=== PATIENT | female | born 1995 | race Caucasian/White ===

== ENCOUNTER 2020-07-27 14:59 | Inpatient (IN) ==
[2020-07-27] MEDS ORDERED: OXYTOCIN 30 UNITS/500 ML BAG IV PRN ×2 (16:16)
--- NOTE | 2020-07-27 16:16 | Labor Progress Brief Note ---
Date of Service July 27, 2020 Subjective Patient presents for BP monitoring / IOL due to mild preeclampsia. She was contacted by phone when her 24 hour urine protein came in a 760mg a few hours ago. She had one hypertensive value in the office two days ago, and another here upon admission, making the diagnosis of mild preeclampsia and indicating for delivery at 38w2d. She presently has good FM, no VB or LOF, and no contractions. She has blurry vision which is not new / not severe, and mild edema which is stable. There is no headache, no recurrence of the nausea she had a few days ago, and no RUQ pain. She has a negative COVID test from two days ago. Assessment & Plan (1) Mild pre-eclampsia affecting first : IOL for mild preeclampsia at term. Patient feeling well and BP fluctuating from normal to mild-HTN range. Rojo balloon placed just now after verbally consenting the patient. Will monitor for at least an hour while labs / IV / etc get placed, then can start pitocin as well if status remains reas suring. Admission and Anticipated Discharge Date Admission Date: July 27, 2020 Physical Exam Constitutional: WD/WN, vitals as above Eyes: PERRL, conjunctivae normal, anicteric sclerae ENMT: external ear and nose normal, oropharynx normal Neck: supple Respiratory: normal respiratory effort and able to speak in complete sentences; no respiratory distress Cardiovascular: Rate/Rhythm: regular rate and regular rhythm Extremities: + pedal edema Gastrointestinal (Abdomen): Gravid / AGA, nontender Musculoskeletal: no cyanosis or clubbing, extremities motor strength 5/5 Skin: no rashes, warm and dry Neurologic: patellar DTR's 2+ bilat, sensation intact Psychiatric: A+Ox3, euthymic affect Genitourinary: Speculum/Bimanual Exam: no vaginal lesions, no vaginal bleeding and uterus nontender OB Exam Abdomen: + vertex and + estimated weight (7) Manual OB Exam: + cervical dilation (1), + cervical effacement 50%, + station -2 and + amniotic fluid (No leakage.) OB Exam Monitor Tracing: + external FHT monitor used, + external uterine monitor used and + category I Lymphatic: no cervical or axillary lymphadenopathy Results & Data ([facility]) Vital Signs (Past 12 Hours) Vital Signs Temp Pulse Resp BP 07/27/20 15:55 103 H 131/69 07/27/20 15:40 113 H 146/80 H 07/27/20 15:27 117 H 137/75 07/27/20 15:18 98.6 F 117 H 20 137/75 07/27/20 15:09 120 H 140/82 07/27/20 15:07 98.6 F 20 Coding Level of Care Code None Diagnoses Mild pre-eclampsia affecting first O14.00
--- NOTE | 2020-07-27 16:16 | Procedure Note ---
Procedure Note Date of Service July 27, 2020 Note Patient was placed in L&D bed and a reactive NST was obtained. The beasley bulb placement process was explained to the patient and all questions answered to her satisfaction. She was positioned in lithotomy, and a latex beasley was prepared with a lubricated stylet and a syringe of 30cc sterile water. A gloved hand was used to identify and examine the cervix which was found to be 1/50/-2. The catheter was advanced to a point just outside the internal os, then the beasley was slid forward off of the stylet and into the uterine cavity outside the amniotic sac. The stylet was removed, and the beasley balloon was inflated to 30cc. The beasley was gently seated downward against the internal cervical os and fixed to the patient's thigh. The heart tones remained cat 1 and will be monitored for 1 hour prior to the patient being allowed to go home for rest. She was counseled on reasons to call or return to L&D, and the plan for continued induction upon her return in A.M. Coding
[2020-07-27 16:35] LABS: Hematocrit (blood only) 38.4 % (37-47); Hemoglobin 12.9 g/dL (12.0-16.0); Mean Corpuscular Hemoglobin 30.3 pg (25-34); Mean Corpuscular Hgb Conc 33.6 g/dL (32-36); Mean Corpuscular Volume 90.1 fL (80-100); Mean Platelet Volume 9.7 fL (7.4-10.4); Platelet Count 352 K/uL (130-400); RDW Coefficient of Variation 13.4 % (11.5-14.5); Red Blood Count 4.26 M/uL (4.2-5.4); White Blood Count 16.26 K/uL (4.8-10.8)
[2020-07-27 16:56] LABS: Alanine Aminotransferase 14 U/L (12-78); Albumin Level 2.6 gm/dl (3.4-5.0); Aspartate Aminotransferase 13 U/L (15-37); BUN Creatinine Ratio 13.8 (10-20); Blood Urea Nitrogen 7 mg/dl (7-18); Calcium 8.7 mg/dl (8.5-10.1); Carbon Dioxide 21 mmol/L (21-32); Chloride 110 mmol/L (98-107); Est GFR (African American) > 150.0; Est GFR (Non-African American) 133.7; Glucose 88 mg/dl (70-99); Potassium 3.9 mmol/L (3.5-5.1); Sodium 137 mmol/L (136-145)
[2020-07-27 16:59] LABS: Albumin Globulin Ratio 0.7 (0.9-2); Alkaline Phosphatase 138 U/L (45-117); Bilirubin,Total 0.4 mg/dl (0.2-1); Globulin 3.8 gm/dl (2.5-4.0); Total Protein 6.4 gm/dl (6.4-8.2)
[2020-07-27] MEDS: LACTATED RINGER'S 1,000 ML IV PRN (18:13)
[2020-07-28] MEDS: LACTATED RINGER'S 1,000 ML IV PRN ×3 (01:37→11:08)
[2020-07-28] MEDS ORDERED: ePHEDrine sulfate 50 MG/ML AMP ONE (06:47)
[2020-07-28] MEDS ORDERED: SODIUM CHLORIDE 0.9% INJ 10 ML VIAL ONE (06:47)
[2020-07-28] MEDS ORDERED: fentaNYL citrate 100 MCG/2 ML VIAL ONE (06:48)
[2020-07-28] MEDS ORDERED: fentaNYL 2MCG/ML ROPIVACAINE 1.25MG/ML 100 ML BAG EPI ONE (06:48)
[2020-07-28] MEDS ORDERED: BUPIVACAINE 0.25% 30 ML VIAL ONE (06:48)
--- NOTE | 2020-07-28 07:00 | Labor Progress Brief Note ---
Date of Service July 28, 2020 Van Rojo came out last evening. Patient has been on pitocin through the night, however only now is she becoming uncomfortable enough to call the contractions painful. She is interested in an epidural. Assessment & Plan (1) Mild pre-eclampsia affecting first : Given her discomfort and request for anesthesia, will place epidural and THEN perform AROM. If not making change several hours after AROM, may need IUPC to allow titration of pitocin. Admission and Anticipated Discharge Date Admission Date: July 27, 2020 Physical Exam Physical Exam: /-2 Vertex membranes intact FHT Cat 1 [place] Q2 Pit @ 20 Results & Data ([facility]) Vital Signs (Past 12 Hours) Vital Signs Temp Pulse Resp BP 07/28/20 05:57 78 16 124/76 07/28/20 04:56 83 16 98/55 L 07/28/20 03:56 80 114/56 L 07/28/20 03:02 93 H 18 130/67 07/28/20 01:58 18 07/28/20 01:56 81 108/55 L 07/28/20 00:59 16 07/28/20 00:57 73 127/58 L 07/27/20 23:56 75 16 126/57 L 07/27/20 23:00 98.4 F 18 07/27/20 22:56 82 139/65 07/27/20 22:00 91 H 20 143/65 H 07/27/20 21:10 16 07/27/20 21:09 86 143/86 H 07/27/20 20:02 90 18 127/70 07/27/20 19:17 98.6 F 96 H 18 137/84 Coding Level of Care Code None Diagnoses Mild pre-eclampsia affecting first O14.00
--- NOTE | 2020-07-28 07:26 | Anesthesiology Consultation ---
Date of Service July 28, 2020 Assessment & Plan (1) Encounter for pre-operative examination: Chart Review Chart Review: Patient NOT seen in Pre Admission Testing and Acceptable Risk for Labor Epidural Consults Requested none ASA ASA2 Proposed Anesthesia Anesthesia Type: Labor Epidural Risk / Benefits Reviewed With: PT / POA / Parent / Guardian, Accepts Plan and Informed Consent Obtained History Height/Weight Height: 5 ft 6 in Weight: 96.162 kg Allergies Allergy/AdvReac Type Severity Reaction Status Date / Time bee venom protein (honey bee) Allergy Severe Swelling Verified 07/27/20 15:17 of Lip/Tongue/Throat Medications Home Medications Medication Instructions Recorded Confirmed Last Taken prenat.vits,dinah,mhl-[id number]-wmavn 1 tab PO DAILY 12/28/19 07/27/20 07/25/20 20:30 Active Medications Generic Name Dose Route Start Last Admin Trade Name Freq PRN Reason Stop Dose Admin Lactated Ringer's 1,000 mls @ 125 mls/hr 07/27/20 16:16 07/28/20 07:25 Lr IV 07/29/20 16:15 999 mls/hr .Q8H PRN Administration L&D Protocol Protocol Oxytocin 30 units in 500 mls @ 20 mls/hr 07/27/20 16:16 07/28/20 06:14 Pitocin IV 07/29/20 16:15 1.2 units/hr .Q24H PRN 20 mls/hr Labor Induction/Augmentation Titration Protocol 1.2 UNITS/HR Past Medical History Medical History Hypertension No pertinent past medical history Varicella vaccination Past Family History Family History Mother Hypertension Father Dyslipidemia Grandfather (Paternal) Cancer pancreatic Grandmother No problems noted. Past Surgical History Surgical History No history of previous surgery S/P wisdom tooth extraction Social History Smoking Status: Never smoker Hx Alcohol Use: No Hx Substance Use: No Physical Exam Vital Signs Last Vital Signs Temp 36.8 C 07/28/20 07:00 Pulse 102 H 07/28/20 07:21 Resp 20 07/28/20 07:00 BP 152/63 H 07/28/20 07:03 Pulse Ox 100 07/28/20 07:21 Testing Laboratory Results 07/27/20 16:27 07/27/20 16:27
[2020-07-28] MEDS ORDERED: diphenhydrAMINE 50 MG/ML VIAL IV PRN (08:08)
[2020-07-28] MEDS ORDERED: NALOXONE HCL 0.4 MG/1 ML VIAL/CARP IV PRN (08:08)
[2020-07-28] MEDS ORDERED: NALOXONE HCL 1 MG in SODIUM CHLORIDE 0.9% 1000ML 1,000 ML IV PRN (08:08)
[2020-07-28] MEDS ORDERED: ONDANSETRON INJ 2 MG/ML 2 ML VIAL IV PRN (08:08)
[2020-07-28] MEDS ORDERED: ePHEDrine sulfate 50 MG/ML AMP IV PRN (08:08)
[2020-07-28] MEDS ORDERED: fentaNYL 2MCG/ML ROPIVACAINE 1.25MG/ML 100 ML BAG EPI PRN (08:08)
--- NOTE | 2020-07-28 09:09 | Labor Progress Brief Note ---
Date of Service July 28, 2020 Subjective Comfortable after epidural. FHT Cat 1 [place] Q 2-3 Cervix 4/80/-2 AROM scant clear fluid. Continue labor. Assessment & Plan Admission and Anticipated Discharge Date Admission Date: July 27, 2020 Results & Data ([facility]) Vital Signs (Past 12 Hours) Vital Signs Temp Pulse Resp BP Pulse Ox 07/28/20 09:06 100 H 100 07/28/20 09:01 80 100 07/28/20 08:58 96 H 111/56 L 07/28/20 08:56 79 100 07/28/20 08:52 83 122/61 07/28/20 08:51 79 100 07/28/20 08:47 92 H 119/63 07/28/20 08:46 83 100 07/28/20 08:42 101 H 109/54 L 07/28/20 08:41 94 H 100 07/28/20 08:37 107 H 118/61 07/28/20 08:36 82 100 07/28/20 08:34 93 H 125/73 07/28/20 08:31 91 H 100 07/28/20 08:27 101 H 127/55 L 07/28/20 08:26 92 H 99 07/28/20 08:23 104 H 139/73 07/28/20 08:21 96 H 99 07/28/20 08:18 86 125/59 L 07/28/20 08:16 86 100 07/28/20 08:11 90 118/57 L 99 07/28/20 08:10 78 106/55 L 07/28/20 08:08 75 101/55 L 07/28/20 08:06 64 99 07/28/20 08:05 59 L 106/56 L 07/28/20 08:04 71 97/53 L 07/28/20 08:02 58 L 89/48 L 07/28/20 08:01 70 98 07/28/20 08:00 86 104/49 L 07/28/20 07:56 126 H 98 07/28/20 07:52 93 H 89 L 07/28/20 07:51 94 H 96 07/28/20 07:46 91 H 98 07/28/20 07:41 86 98 07/28/20 07:36 103 H 97 07/28/20 07:31 92 H 98 07/28/20 07:26 106 H 99 07/28/20 07:21 102 H 100 07/28/20 07:16 88 98 07/28/20 07:11 102 H 99 07/28/20 07:06 89 99 07/28/20 07:03 108 H 152/63 H 07/28/20 07:01 111 H 97 07/28/20 07:00 36.8 C 109 H 20 132/101 H 07/28/20 05:57 78 16 124/76 07/28/20 04:56 83 16 98/55 L 07/28/20 03:56 80 114/56 L 07/28/20 03:02 93 H 18 130/67 07/28/20 01:58 18 07/28/20 01:56 81 108/55 L 07/28/20 00:59 16 07/28/20 00:57 73 127/58 L 07/27/20 23:56 75 16 126/57 L 07/27/20 23:00 36.9 C 18 07/27/20 22:56 82 139/65 07/27/20 22:00 91 H 20 143/65 H 07/27/20 21:10 16 07/27/20 21:09 86 143/86 H Coding Level of Care Code None
--- NOTE | 2020-07-28 14:18 | Labor Progress Brief Note ---
Date of Service July 28, 2020 Subjective Urge to push with ctx, feels better with pushing. FHT cat 1 with early decels [place] Q 1-2 Complete, +1 station Continue pushing Assessment & Plan Admission and Anticipated Discharge Date Admission Date: July 27, 2020 Results & Data ([facility]) Vital Signs (Past 12 Hours) Vital Signs Temp Pulse Resp BP Pulse Ox 07/28/20 14:15 107 H 136/67 07/28/20 14:11 122 H 95 07/28/20 14:06 119 H 98 07/28/20 14:01 121 H 98 07/28/20 13:56 111 H 98 07/28/20 13:51 109 H 98 07/28/20 13:46 101 H 138/79 98 07/28/20 13:41 102 H 98 07/28/20 13:36 88 97 07/28/20 13:34 37.3 C 22 07/28/20 13:31 97 H 131/65 99 07/28/20 13:26 98 H 100 07/28/20 13:25 95 H 92 07/28/20 13:21 106 H 100 07/28/20 13:16 97 H 100 07/28/20 13:15 95 H 130/75 07/28/20 13:11 91 H 100 07/28/20 13:06 92 H 100 07/28/20 13:01 94 H 129/74 100 07/28/20 12:59 20 07/28/20 12:56 97 H 100 07/28/20 12:51 99 H 99 07/28/20 12:46 90 124/71 99 07/28/20 12:41 99 H 99 07/28/20 12:36 81 98 07/28/20 12:31 83 97 07/28/20 12:30 80 135/61 07/28/20 12:26 77 98 07/28/20 12:21 80 99 07/28/20 12:16 88 99 07/28/20 12:15 82 135/69 07/28/20 12:11 80 99 07/28/20 12:06 78 98 07/28/20 12:02 89 20 130/70 07/28/20 12:01 83 98 07/28/20 11:56 81 98 07/28/20 11:51 88 98 07/28/20 11:46 102 H 126/72 97 07/28/20 11:41 100 H 99 07/28/20 11:36 77 99 07/28/20 11:31 90 99 07/28/20 11:30 93 H 133/76 07/28/20 11:26 90 100 07/28/20 11:21 89 100 07/28/20 11:16 86 100 07/28/20 11:15 88 133/65 07/28/20 11:11 74 100 07/28/20 11:06 96 H 100 07/28/20 11:02 37.0 C 85 18 132/72 07/28/20 11:01 77 100 07/28/20 10:56 85 100 07/28/20 10:51 79 100 07/28/20 10:46 90 100 07/28/20 10:45 103 H 132/70 07/28/20 10:41 95 H 100 07/28/20 10:36 94 H 100 07/28/20 10:31 97 H 127/63 100 07/28/20 10:26 120 H 100 07/28/20 10:21 101 H 100 07/28/20 10:17 86 133/71 07/28/20 10:16 85 100 07/28/20 10:11 71 100 07/28/20 10:06 82 100 07/28/20 10:01 85 96/50 L 100 07/28/20 09:59 16 07/28/20 09:56 87 100 07/28/20 09:51 77 100 07/28/20 09:47 71 117/59 L 07/28/20 09:46 71 100 07/28/20 09:41 70 100 07/28/20 09:36 84 100 07/28/20 09:31 78 99 07/28/20 09:30 96 H 107/52 L 07/28/20 09:26 97 H 99 07/28/20 09:21 103 H 100 07/28/20 09:16 98 H 120/65 100 07/28/20 09:11 79 100 07/28/20 09:06 100 H 100 07/28/20 09:01 80 100 07/28/20 08:58 96 H 111/56 L 07/28/20 08:56 79 100 07/28/20 08:52 83 122/61 07/28/20 08:51 79 100 07/28/20 08:47 92 H 119/63 07/28/20 08:46 83 100 07/28/20 08:42 101 H 109/54 L 07/28/20 08:41 94 H 100 07/28/20 08:37 107 H 118/61 07/28/20 08:36 82 100 07/28/20 08:34 93 H 125/73 07/28/20 08:31 91 H 100 07/28/20 08:27 101 H 127/55 L 07/28/20 08:26 92 H 99 07/28/20 08:23 104 H 139/73 07/28/20 08:21 96 H 99 07/28/20 08:18 86 125/59 L 07/28/20 08:16 86 100 07/28/20 08:11 90 118/57 L 99 07/28/20 08:10 78 106/55 L 07/28/20 08:08 75 101/55 L 07/28/20 08:06 64 99 07/28/20 08:05 59 L 106/56 L 07/28/20 08:04 71 97/53 L 07/28/20 08:02 58 L 89/48 L 07/28/20 08:01 70 98 07/28/20 08:00 86 104/49 L 07/28/20 07:56 126 H 98 07/28/20 07:52 93 H 89 L 07/28/20 07:51 94 H 96 07/28/20 07:46 91 H 98 07/28/20 07:41 86 98 07/28/20 07:36 103 H 97 07/28/20 07:31 92 H 98 07/28/20 07:26 106 H 99 07/28/20 07:21 102 H 100 07/28/20 07:16 88 98 07/28/20 07:11 102 H 99 07/28/20 07:06 89 99 07/28/20 07:03 108 H 152/63 H 07/28/20 07:01 111 H 97 07/28/20 07:00 36.8 C 109 H 20 132/101 H 07/28/20 05:57 78 16 124/76 07/28/20 04:56 83 16 98/55 L 07/28/20 03:56 80 114/56 L 07/28/20 03:02 93 H 18 130/67 Coding Level of Care Code None
--- NOTE | 2020-07-28 15:18 | Delivery Summary ---
Vaginal Delivery Summary Date of Service July 28, 2020 Vaginal Delivery Summary Vaginal Delivery Summary: Pre-delivery diagnoses: 24yo @ 38 3/7, IOL for preeclampsia without severe features Post-delivery diagnoses: same Procedure: spontaneous vaginal delivery, repair of 1st degree perineal laceration Surgeon: Maine Barker DO Complications: none Findings: Viable male . Apgars: 8/9. Weight 7#15oz. Estimated blood loss: 300ml Description of delivery: The patient progressed to complete with epidural anesthesia. She then began to push. She spontaneously vaginally delivered a viable from the cephalic presentation. The head delivered in OA position. The anterior shoulder delivered, followed by the posterior shoulder, followed by the body. The baby was placed on mother's abdomen and a spontaneous cry was heard. Delayed cord clamping was employed, and the cord was doubly clamped and cut. Cord blood was obtained. The placenta was delivered spontaneously intact with a 3-vessel cord. The uterus and vagina were swept of clots and debris. IV pitocin was given. The uterus became firm. The cervix, vagina, and perineum were inspected and a first degree perineal laceration was noted and repaired in standard fashion with 3-0 vicryl. Excellent hemostasis was observed. The mother and baby are recovering in stable and good condition in the room. Sponge, needle and instrument counts were correct x 2. Maine Barker DO [facility] Vaginal Delivery Charge Vaginal Delivery Codes: 99274 global code for the antepartum, delivery, and post-
[2020-07-28] MEDS ORDERED: DIPHTHERIA/TETANUS/PERTUSSIS 0.5 ML SYR/VIAL IM ONE (15:21)
[2020-07-28] MEDS ORDERED: SUPERCREAM 0.870% 15 GM JAR EXT PRN (15:21)
[2020-07-28] MEDS ORDERED: HYDROCORTISONE ACETATE 25 MG SUPP PR PRN (15:21)
[2020-07-28] MEDS ORDERED: ACETAMINOPHEN 325 MG TAB PO PRN (15:21)
[2020-07-28] MEDS ORDERED: BENZOCAINE 20% AER SPR 82.5 GM CAN EXT PRN (15:21)
[2020-07-28] MEDS ORDERED: OXYTOCIN 30 UNITS/500 ML BAG IV PRN (15:21)
[2020-07-28] MEDS ORDERED: oxyCODONE/ACETAMINOPHEN 5mg/325mg TAB PO PRN (15:21)
--- NOTE | 2020-07-28 15:53 | Anesthesia Procedure Note ---
Date of Service July 28, 2020 Anesthesia Post Epidural Note Vital Signs Vital Signs: Temp Pulse Resp BP Pulse Ox 37.3 C 88 22 129/66 97 07/28/20 13:34 07/28/20 15:45 07/28/20 13:34 07/28/20 15:45 07/28/20 14:41 Notes Mental Status: alert / awake / arousable and participated in evaluation Nausea / Vomiting: adequately controlled Pain: adequately controlled Airway Patency, RR, SpO2: stable & adequate BP & HR: stable & adequate Hydration State: stable & adequate Neuraxial Anesthesia: was administered and sensory block is resolving Anesthetic Complications: no major complications apparent and Pt Satisfied with anesthetic care Epidural: Removed without complications and With tip intact Notes: Epidural site clean, dry and intact. No signs of edema, erythema or bruising at insertion site. Pt instructed to request anesthesia if she has residual lower extremity numbness or if she develops lower extremity pain or weakness, back pain or headache.
[2020-07-28] MEDS: IBUPROFEN 600 MG TAB PO PRN (16:29)
[2020-07-28] MEDS: DOCUSATE SODIUM 100 MG CAP PO SCH (20:34)
[2020-07-29] MEDS: IBUPROFEN 600 MG TAB PO PRN ×3 (00:40→20:03)
[2020-07-29 06:24] LABS: Hematocrit (blood only) 32.6 % (37-47); Hemoglobin 10.9 g/dL (12.0-16.0); Mean Corpuscular Hemoglobin 30.1 pg (25-34); Mean Corpuscular Hgb Conc 33.4 g/dL (32-36); Mean Corpuscular Volume 90.1 fL (80-100); Mean Platelet Volume 9.4 fL (7.4-10.4); Platelet Count 263 K/uL (130-400); RDW Coefficient of Variation 13.5 % (11.5-14.5); RDW Standard Deviation 44.2 fL (36.4-46.3); Red Blood Count 3.62 M/uL (4.2-5.4); White Blood Count 20.02 K/uL (4.8-10.8)
[2020-07-29 06:51] LABS: Albumin Level 2.1 gm/dl (3.4-5.0); BUN Creatinine Ratio 11.1 (10-20); Calcium 8.7 mg/dl (8.5-10.1); Creatinine Clr Calc Pharmacy 174.8 ml/min; Est GFR (African American) 149.5; Potassium 3.9 mmol/L (3.5-5.1)
[2020-07-29 07:05] LABS: Albumin Globulin Ratio 0.7 (0.9-2); Bilirubin,Total 0.6 mg/dl (0.2-1); Globulin 3.1 gm/dl (2.5-4.0); Total Protein 5.2 gm/dl (6.4-8.2)
--- NOTE | 2020-07-29 08:14 | Obstetrical Progress Note ---
Date of Service July 29, 2020 Assessment & Plan (1) : PPD#1 doing well, desires discharge home later today. Reviewed instructions. Subjective Ambulation: ambulating normally Voiding: no voiding problems Diet Tolerance:: regular diet Lochia:: Moderate Feeding Type:: breast feeding Review of Systems All systems reviewed & are unremarkable except as noted in HPI & below Physical Exam Constitutional WD/WN, vitals as above no acute distress Respiratory normal respiratory effort Cardiovascular Rate/Rhythm: regular rate and regular rhythm Gastrointestinal (Abdomen) Inspection/Auscultation: abdomen normal to inspection; abdomen not distended Percussion/Palpation: abdomen soft Genitourinary OB Exam Abdomen: + fundal height Fundus: + firm; not tender Results & Data ([facility]) Vital Signs (Past 12 Hours) Vital Signs Temp Pulse Resp BP 07/29/20 04:30 37 C 91 H 16 111/74 07/28/20 23:25 36.8 C 87 16 111/74
[2020-07-29] MEDS: DOCUSATE SODIUM 100 MG CAP PO SCH ×2 (08:28→21:12)
[2020-07-29] MEDS: PRENATAL VITAMIN 1 TAB PO SCH (08:28)
[2020-07-29] MEDS ORDERED: NON-FORMULARY MEDICATION (Prenat.Vits,Cal,Min-Iron-Folic tablet) PO SCH (09:00)
[2020-07-29] MEDS ORDERED: bisacodyL 5 MG TABEC PO SCH (20:00)
[2020-07-30] MEDS ORDERED: bisacodyL 10 MG SUPP PR PRN (06:00)
--- NOTE | 2020-07-30 07:29 | Obstetrical Progress Note ---
Date of Service <Paddy Mendoza MD - Last Filed: 07/30/20 07:32> July 30, 2020 Assessment & Plan <Paddy Mendoza MD - Last Filed: 07/30/20 07:32> (1) : PPD#2. Feel well today. Eating well, voiding well, ambulating well. Pain well-controlled with ibuprofen 600mg q4h prn. -plan for discharge today -continue pain control as above -routine care - OOB, ambulation, diet as tolerated -after discharge, [address] Barker Subjective <Paddy Mendoza MD - Last Filed: 07/30/20 07:32> Ambulation: ambulating normally Voiding: no voiding problems Passing Gas:: Yes Diet Tolerance:: regular diet Lochia:: Heena Raymundo is a 24 y/o female who is POD #2 following at 38+3 weeks. She reports feeling well overall this morning. Mild abdominal cramping and 2/10 pain well managed on analgesics. Voiding well. Tolerating meals overnight without difficulty. Patient has been able to ambulate some. + passing gas and - bowel movement. Has persistent lochia with good improvement this morning. Currently . Review of Systems Denies fever or chills. Denies shortness of breath or cough. Denies chest pain. Denies breast pain. Denies dysuria. Denies leg pain or leg swelling. Denies headache or changes in vision. Constitutional: no fever and no chills Respiratory: no cough and no dyspnea Cardiovascular: no chest pain, no palpitations and no edema Gastrointestinal: no nausea and no vomiting Genitourinary (female): no dysuria Physical Exam <Paddy Mendoza MD - Last Filed: 07/30/20 07:32> General: Alert, oriented. No acute distress. Cardiac: Regular rate and rhythm. No murmurs. Respiratory: Clear to auscultation bilaterally a/p, no wheezes/rales/rhonchi. No increased work of breathing. Symmetrical chest rise. No respiratory distress. Abdomen: Soft, nontender, nondistended. Bowel sounds present. Uterus: Uterine fundus firm, palpable [_] cm below umbilicus. Surgical scar clean and healing well. Lower Extremities: No lower extremity edema or swelling. No deep calf pain. Shannen's negative bilaterally. Constitutional no acute distress Respiratory normal respiratory effort, lungs clear to auscultation Cardiovascular RRR, no murmur, no edema Gastrointestinal (Abdomen) Inspection/Auscultation: normal bowel sounds Percussion/Palpation: abdomen soft Results & Data ([facility]) <Paddy Mendoza MD - Last Filed: 07/30/20 07:32> Vital Signs (Past 12 Hours) Vital Signs Temp Pulse Pulse Resp BP BP Pulse Ox 07/29/20 23:40 36.9 C 89 16 144/65 H 99 07/29/20 19:45 36.8 C 98 H 16 126/78 98 <Maine Barker DO - Last Filed: 07/30/20 07:44> Co-Signing Physician Notes Resident Physician Supervision Note: I was present with Dr. Mendoza during the history and exam. I discussed the case with the resident and agree with the findings and plan as documented in the note. Any exceptions or clarifications are listed here: PPD#2 doing well, DC home. Instructions reviewed. Documented By: Maine Barker DO
[2020-07-30] MEDS: PRENATAL VITAMIN 1 TAB PO SCH (08:42)
[2020-07-30] MEDS: IBUPROFEN 600 MG TAB PO PRN (08:43)
[2020-07-30] MEDS: DOCUSATE SODIUM 100 MG CAP PO SCH (08:43)
== END 2020-07-30 14:00 | disposition home or self-care (01) | DRG 807 ==
LOC: 4S1 14:59 → 4S2 07-28 17:28

== ENCOUNTER 2023-06-11 07:35 | Inpatient (IN) ==
[2023-06-11] MEDS ORDERED: OXYTOCIN 30 UNITS/500 ML BAG IV PRN ×3 (07:39→15:50)
[2023-06-11] MEDS ORDERED: LIDOCAINE 1% LOCAL 20 ML VIAL INFIL PRN (07:39)
[2023-06-11 08:11] LABS: Hematocrit (blood only) 38.6 % (37.0-47.0); Hemoglobin 13.1 g/dl (12.0-16.0); Mean Corpuscular Hemoglobin 28.6 pg (25.0-34.0); Mean Corpuscular Hgb Conc 33.9 g/dL (32.0-36.0); Mean Corpuscular Volume 84.3 fL (80.0-100.0); Mean Platelet Volume 9.6 fL (9.4-12.4); Platelet Count 323 K/uL (130-400); RDW Standard Deviation 39.8 fL (36.4-46.3); Red Blood Count 4.58 M/uL (4.20-5.40); White Blood Count 12.49 K/ul (4.8-10.8)
[2023-06-11] MEDS: LACTATED RINGER'S 1,000 ML IV PRN ×3 (08:29→14:14)
[2023-06-11] MEDS ORDERED: ePHEDrine sulfate 50 MG/ML AMP ONE (11:21)
[2023-06-11] MEDS ORDERED: fentaNYL citrate PF 100 MCG/2 ML VIAL ONE (11:21)
[2023-06-11] MEDS ORDERED: SODIUM CHLORIDE 0.9% PF INJ 10 ML VIAL ONE (11:21)
[2023-06-11] MEDS ORDERED: LIDOCAINE 2%/EPINEPHRINE 1:200,000 20 ML PF ONE (11:22)
[2023-06-11] MEDS ORDERED: BUPIVACAINE 0.25% PF 30 ML VIAL ONE (11:22)
[2023-06-11] MEDS ORDERED: fentaNYL 2MCG/ML ROPIVACAINE 1.25MG/ML 100 ML BAG EPI ONE (11:22)
[2023-06-11] MEDS ORDERED: NALOXONE HCL 0.4 MG/1 ML VIAL/CARP IV PRN (11:33)
[2023-06-11] MEDS ORDERED: ROPIVACAINE 0.5% PF 5 MG/ML 20 ML VIAL EPI PRN (11:33)
[2023-06-11] MEDS ORDERED: BUPIVACAINE 0.25% PF 30 ML VIAL EPI PRN (11:33)
[2023-06-11] MEDS ORDERED: SODIUM CHLORIDE 0.9% PF INJ 10 ML VIAL EPI PRN (11:33)
[2023-06-11] MEDS ORDERED: NALBUPHINE HCL INJ 10 MG/ML AMP IV PRN (11:33)
[2023-06-11] MEDS ORDERED: fentaNYL citrate PF 100 MCG/2 ML VIAL EPI STA (11:33)
[2023-06-11] MEDS ORDERED: BUPIVACAINE 0.25% PF 30 ML VIAL EPI STA (11:33)
[2023-06-11] MEDS ORDERED: diphenhydrAMINE 50 MG/ML VIAL IV PRN (11:33)
[2023-06-11] MEDS ORDERED: fentaNYL citrate PF 100 MCG/2 ML VIAL EPI PRN (11:33)
[2023-06-11] MEDS ORDERED: fentaNYL 2MCG/ML ROPIVACAINE 1.25MG/ML 100 ML BAG EPI PRN (11:33)
[2023-06-11] MEDS ORDERED: SODIUM CHLORIDE 0.9% PF INJ 10 ML VIAL EPI STA (11:33)
[2023-06-11] MEDS ORDERED: NALOXONE HCL 1 MG in SODIUM CHLORIDE 0.9% 1,000 ML IV PRN (11:33)
[2023-06-11] MEDS ORDERED: ePHEDrine sulfate 50 MG/ML AMP IV PRN (11:33)
[2023-06-11] MEDS ORDERED: LIDOCAINE 2% MPF LOCAL 5 ML VIAL EPI PRN (11:33)
[2023-06-11] MEDS ORDERED: LIDOCAINE 2%/EPINEPHRINE 1:200,000 20 ML PF EPI STA (11:33)
--- NOTE | 2023-06-11 11:35 | Anesthesiology Consultation ---
Date of Service June 11, 2023 Assessment & Plan Chart Review Chart Review: Acceptable Risk for Labor Epidural Consults Requested none History Height/Weight Height: 5 ft 7 in Weight: 101.877 kg Allergies Allergy/AdvReac Type Severity Reaction Status Date / Time bee venom protein (honey bee) Allergy Severe Swelling Verified 06/10/23 19:31 of Lip/Tongue/Throat Medications Home Medications Medication Instructions Recorded Confirmed Last Taken prenat.vits,dinah,aya-mbwh-mkoqm 1 tab PO DAILY 11/05/22 06/11/23 06/08/23 08:00 aspirin 81 mg tablet,delayed 81 mg PO DAILY 12/24/22 06/11/23 06/09/23 21:00 release (Adult Low Dose Aspirin) Active Medications Generic Name Dose Route Start Last Admin Trade Name Freq PRN Reason Stop Dose Admin Oxytocin 30 units in 500 mls @ 12 mls/hr 06/11/23 07:39 06/11/23 11:29 Pitocin IV 06/13/23 07:38 0.72 units/hr .Q24H PRN 12 mls/hr Labor Induction/Augmentation Titration Protocol 0.72 UNITS/HR Lactated Ringer's 1,000 mls @ 125 mls/hr 06/11/23 07:39 06/11/23 11:08 Lr IV 06/13/23 07:38 999 mls/hr .Q8H PRN Infusion L&D Protocol Protocol Past Medical History Medical History Mild pre-eclampsia affecting first No pertinent past medical history Varicella vaccination Past Family History Family History Mother Hypertension Father Dyslipidemia Grandfather (Paternal) Cancer pancreatic Grandmother No problems noted. Past Surgical History Surgical History No history of previous surgery S/P wisdom tooth extraction Social History Smoking Status: Never smoker Do You Dip or Chew Tobacco: No Hx Alcohol Use: No Hx Substance Use: No substance use type: does not use Physical Exam Vital Signs Last Vital Signs Temp 37.1 C 06/11/23 11:05 Pulse 78 06/11/23 11:31 Resp 20 06/11/23 11:05 BP 126/66 06/11/23 11:31 Testing Laboratory Results 06/11/23 07:50 Blood Type O Positive 06/11/23 07:50 Antibody Screen NEGATIVE 06/11/23 07:50
--- NOTE | 2023-06-11 15:47 | Delivery Summary ---
Vaginal Delivery Summary Date of Service June 11, 2023 Vaginal Delivery Summary DIAGNOSES: 1. [place] intrauterine at 40w1d gestation. 2. Induction of Labor. 3. Group B Streptococcus Neg. PROCEDURE: Spontaneous vaginal delivery and repair of first degree laceration. SURGEON: Louise Begum MD. HEAD SCORER: None. ESTIMATED BLOOD LOSS: 350 mL. COMPLICATIONS: Shoulder dystocia PLACENTA: Spontaneous and intact with a 3-vessel cord. DISPOSITION: Stable to labor and delivery. DESCRIPTION: The patient pushed well and brought the head to in OA position. There was very slow delivery of the head after , aka "turtle sign." Restitution of the head was slow as well. There was no nuchal cord. The right shoulder was anterior. Chantal and suprapubic pressure were employed through two additional pushes to deliver the shoulders. As they delivered it was evident that the R arm was compound presentation wrapped around the anterior chest and neck, with the hand alongside the left cheek. Also, the left /posterior arm was actually pinned behind the back, with the left hand near the R flank as it delivered. This arm did not need to be manipulated; rather, as the baby extruded from the vaginal canal, it was allowed to naturally "unwrap" itself from the torso. This left arm hung noticeably limp at the moment it became free from the labial tissues, and the nursery staff were alerted to this immediately so that they could evaluate arm and shoulder immediately upon receiving the baby. He was placed on the maternal abdomen while the cord was doubly clamped by the MD and then cut. Respiratory efforts and cry were prompt, occurring on the maternal abdomen, prior to even cutting the cord. The placenta delivered spontaneously and was noted to be intact and with a 3VC. The cervix, vagina and perineum were examined and were found to have a first degree posterior fourchette laceration which was sutured with vicryl in a running locked manner for hemostasis and cosmesis. The fundus was firm and lochia minimal immediately after delivery. hands were noted to make grasp motions bilaterally, and both shoulders / upper arms did move spontaneously, though L upper arm movement seemed less than R at the warmer in the first few minutes post delivery. This was conveyed to the mom and dad, and I voiced that we would have the pediatric team aware of this issue and looking out as indicated for any possible bony or nerve injury that may have occurred. Per the RN attending the delivery from their team, Belinda, no crepitus was appreciated. I did not feel a pop or break during the delivery itself either. [facility] Vaginal Delivery Charge Vaginal Delivery Codes: 93045 global code for the antepartum, delivery, and post-
[2023-06-11] MEDS ORDERED: ACETAMINOPHEN 325 MG TAB PO PRN (15:50)
[2023-06-11] MEDS ORDERED: DIPHTHERIA/TETANUS/PERTUSSIS Vaccine (Tdap, Age 7+yrs) 0.5mL SYR/VL IM ONE (15:50)
[2023-06-11] MEDS ORDERED: HYDROCORTISONE ACETATE 25 MG SUPP PR PRN (15:50)
[2023-06-11] MEDS ORDERED: bisacodyL 10 MG SUPP PR PRN (15:50)
[2023-06-11] MEDS ORDERED: BENZOCAINE 20% SPRY 85 APPLN/85 GM CAN EXT PRN (15:50)
--- NOTE | 2023-06-11 16:26 | Anesthesia Procedure Note ---
Date of Service June 11, 2023 Anesthesia Post Epidural Note Vital Signs Vital Signs: Temp Pulse Resp BP Pulse Ox 36.8 C 92 H 20 107/56 L 98 06/11/23 15:23 06/11/23 16:24 06/11/23 16:08 06/11/23 16:24 06/11/23 15:28 Notes Mental Status: alert / awake / arousable and participated in evaluation Nausea / Vomiting: adequately controlled Pain: adequately controlled Airway Patency, RR, SpO2: stable & adequate BP & HR: stable & adequate Hydration State: stable & adequate Neuraxial Anesthesia: was administered and sensory block is resolving Anesthetic Complications: no major complications apparent and Pt Satisfied with anesthetic care Epidural: Removed without complications and With tip intact
[2023-06-11] MEDS ORDERED: miSOPROStoL 200 MCG TAB PR ONE (16:46)
[2023-06-11] MEDS ORDERED: AMPICILLIN/SULBACTAM SOD 3,000 MG in SODIUM CHLOR 0.9% MINI-B 100 ML IV STA (18:42)
--- NOTE | 2023-06-11 18:43 | Communication Note ---
Date of Service: June 11, 2023 Patient previously had 350cc EBL at delivery (estimated, and maybe a generous estimate). Then PPH of 650cc which was weighed volume, and was treated with misoprostol 800mcg IA x1 and a second bag of dilute pitocin, with improvement in bleeding. H&H ordered at my request. Patient was being sat up to move over to room when ANA Davis noted a n increase in lochia again. Prior ordered H&H drawn but still pending. I came to the room and expressed another 205cc of clot via bimanual exam, including a manual sweep of the uterus. The fundus was at the umbilicus at the start of this process and several CM below it afterwards. No retained placenta identified during this. Discussed with patient would like her to remain on L&D at least 1 additional hour for obs, and will also give Unasyn x1 dose due to intrauterine sweep. She was counseled prior to sweep about pain management as she had thus far declined pain meds. She did not wish to have a dose prior to procedure though both RN and MD had discussed that procedure was anticipated to be painful. She was accepting of motrin + percocet afterwards.
[2023-06-11] MEDS ORDERED: oxyCODONE/ACETAMINOPHEN 5mg/325mg TAB PO PRN (18:47)
[2023-06-11] MEDS: IBUPROFEN 600 MG TAB PO PRN (18:48)
[2023-06-11 19:10] LABS: Hematocrit (blood only) 33.2 % (37.0-47.0); Hemoglobin 11.4 g/dl (12.0-16.0)
[2023-06-11] MEDS ORDERED: SODIUM CHLORIDE 0.9% 250 ML IV PRN (19:53)
[2023-06-11] MEDS: DOCUSATE SODIUM 100 MG CAP PO SCH (20:39)
--- NOTE | 2023-06-12 05:39 | Obstetrical Progress Note ---
Date of Service June 12, 2023 Assessment & Plan (1) Encounter for care and examination after delivery: Plan S/p day #1 Vital signs reviewed and WNL Blood type O+, Rubella immune, GBS negative Pt doing well clinically Encourage ambulation Monitor and control pain with Motrin prn Regular diet, Monitor Lochia Encourage breast feeding Admission and Anticipated Discharge Date Admission Date: June 11, 2023 Supervising Physician Co-Signing Physician Notes Resident Physician Supervision Note: I interviewed and examined the patient. Discussed with Dr. Echavarria and agree with findings and plan as documented in the note. Any exceptions or clarifications are listed here: pt desires dc home at 24hr. Hgb appropriate and well tolerated. Documented By: Louise Begum MD, FACOG Subjective 27 yo post- day 1 s/p Ambulation: ambulating normally Voiding: no voiding problems Passing Gas:: Yes Diet Tolerance:: regular diet Lochia: Small Feeding Type: breast feeding Current Pain Level: Minimal control with pain meds Resting comfortably this AM in NAD. Denies ANDERSON, CP, SOB, N/V/D, LE pain/swelling. Review of Systems Review of Systems: All systems reviewed & are unremarkable except as noted in HPI & below Physical Exam Physical Exam: General: patient resting comfortably, NAD, non-toxic in appearance, AA&O x 4, answers questions appropriately. Skin: warm, dry, intact HEENT: NC/AT, anicteric sclera, conjunctiva without injection, moist mucus membranes. Heart: +S1/S2, regular, no m/r/g Lungs: equal air entry bilaterally, no rales/rhonchi/wheezes Abd: +BS, soft, NT/ND, uterine fundus firm at umbilicus Ext: warm, no clubbing/cyanosis or edema, Shannen's neg. Neuro: nonfocal, patient AA&O x 4, speech intact, no facial droop, moving all extremities on command. Results & Data Vital Signs (Past 12 Hours) Vital Signs Temp Pulse Pulse Resp BP BP Pulse Ox 06/12/23 04:20 36.8 C 88 18 127/79 96 06/11/23 23:45 36.8 C 88 18 127/79 96 06/11/23 20:15 36.5 C 86 18 130/74 97 06/11/23 19:35 36.7 C 18 06/11/23 19:00 36.7 C 16 06/11/23 18:32 20 06/11/23 17:58 37 C 20 06/11/23 19:23 106 H 06/11/23 19:23 149/80 H 06/11/23 19:09 106 H 06/11/23 19:09 147/71 H 06/11/23 18:54 103 H 06/11/23 18:54 152/77 H 06/11/23 18:46 108 H 06/11/23 18:46 173/92 H 06/11/23 18:23 103 H 06/11/23 18:23 150/77 H 06/11/23 18:08 103 H 06/11/23 18:08 153/67 H 06/11/23 17:59 114 H 06/11/23 17:59 140/61 O2 Del Method 06/12/23 04:20 Room Air 06/11/23 23:45 Room Air 06/11/23 20:15 Room Air 06/11/23 19:35 06/11/23 19:00 06/11/23 18:32 06/11/23 17:58 06/11/23 19:23 06/11/23 19:23 06/11/23 19:09 06/11/23 19:09 06/11/23 18:54 06/11/23 18:54 06/11/23 18:46 06/11/23 18:46 06/11/23 18:23 06/11/23 18:23 06/11/23 18:08 06/11/23 18:08 06/11/23 17:59 06/11/23 17:59 Resident Activity Tracking Resident Involvement: Resident Care Provided Care Provided: OB Delivery
[2023-06-12 06:16] LABS: Hematocrit (blood only) 31.5 % (37.0-47.0); Hemoglobin 10.6 g/dl (12.0-16.0)
[2023-06-12] MEDS ORDERED: PRENATAL VITAMIN 1 TAB PO SCH (08:00)
[2023-06-12] MEDS: DOCUSATE SODIUM 100 MG CAP PO SCH (09:10)
[2023-06-12] MEDS: IBUPROFEN 600 MG TAB PO PRN (09:10)
[2023-06-12 13:22] VITALS: BP 126/80; PULSE 96; RESP 18; TEMP 97.7; O2SAT 98
[2023-06-12] MEDS ORDERED: bisacodyL 5 MG TABEC PO SCH (20:00)
== END 2023-06-12 15:30 | disposition home or self-care (01) | DRG 768 ==
LOC: 4S1 07:35 → 4E2 19:45